=== PATIENT | male | born 1960 | race African-American/Black ===

== ENCOUNTER 2024-03-22 16:40 | Emergency (ER) | payer OTHER ==
[2024-03-22 16:55] VITALS: BMI 26.6
[2024-03-22] MEDS ORDERED: NITROGLYCERIN SUBLINGUAL 1/150 0.4 MG TAB ONE (17:52)
[2024-03-22] MEDS ORDERED: ACETAMINOPHEN INJECTION 100 ML IVPB ONE (17:52)
[2024-03-22] MEDS ORDERED: METHOCARBAMOL 500 MG TABLET ONE (18:11)
[2024-03-22] MEDS: ACETAMINOPHEN 1000 MG/100 ML BAG IVPB ONE (18:13)
[2024-03-22] MEDS: SODIUM CHLORIDE 0.9% 500 ML INFUS.BAG IV ONE (18:13)
[2024-03-22] MEDS: METHOCARBAMOL 750 MG TABLET PO ONE (18:13)
[2024-03-22] MEDS: NITROGLYCERIN SUBLINGUAL 1/150 0.4 MG TAB SL ONE (18:13)
[2024-03-22 18:16] LABS: BASO % 0.4 % (0-2.0); EOS % 0.5 % (0-4.5); HEMATOCRIT 46.2 % (35.4-49); HEMOGLOBIN 15.6 GM/dL (11.7-16.9); LYMPH % 22.4 % (8-40); MCH 31.9 pg (25.7-33.7); MCHC 33.8 g/dl (32.0-35.9); MEAN CELL VOLUME 94.3 fl (80-96); MEAN PLT VOLUME 8.7 fl (7.5-11.1); MONO % 12.4 % (3.8-10.2); NEUT % 64.3 % (42.8-82.8); PLATELET COUNT 122 10^3/uL (134-434); RBC 4.89 M/mm3 (4.00-5.60); RDW 13.3 % (11.9-15.9)
[2024-03-22 18:32] LABS: INR 2.16 (0.83-1.09); PROTHROMBIN TIME (PATIENT) 24.3 SEC (9.7-13.0)
[2024-03-22 18:34] LABS: ACTIVATED PTT 52.7 SECONDS (25.2-36.5)
[2024-03-22 18:34] LABS: POTASSIUM 4.1 mmol/L (3.5-5.1)
[2024-03-22 18:36] LABS: ALBUMIN 3.9 g/dl (3.4-5.0); BLOOD UREA NITROGEN 14.3 mg/dL (7-18); MAGNESIUM 1.7 mg/dL (1.8-2.4)
[2024-03-22 18:39] LABS: CREATININE 1.5 mg/dL (0.55-1.3)
[2024-03-22 18:41] LABS: BILIRUBIN,TOTAL 0.7 mg/dL (0.2-1); TOT PROT 6.8 g/dl (6.4-8.2)
[2024-03-22] MEDS ORDERED: MAGNESIUM 1GM/D5W - 1 GM/100 ML IVPB IVPB ONE (19:02)
[2024-03-22] MEDS: MAGNESIUM SULF 50% (8.12 MEQ/2 ML-1 GM VIAL) IVPB ONE (19:07)
[2024-03-22 20:06] VITALS: BP 178/89; PULSE 76; RESP 19; TEMP 97.8
== END 2024-03-22 20:22 | disposition home or self-care (01) ==
LOC: JER 16:40
PROC: 3E033NZ Introduction of Analgesics, Hypnotics, Sedatives into Peripheral Vein, Percutaneous Approach (ICD-10-PCS; principal; 2024-03-22)
PROC: 3E033GC Introduction of Other Therapeutic Substance into Peripheral Vein, Percutaneous Approach (ICD-10-PCS; 2024-03-22)
DX: M94.0 Chondrocostal junction syndrome [Tietze] (principal); R42 Dizziness and giddiness; R11.0 Nausea; R07.9 Chest pain, unspecified
CPT/HCPCS: 36415; 71045-TC-FY; 80053; 83735; 84484; 85025; 85610; 85730; 93005; 93010; 96374; 96375; 99285-25; J0131